=== PATIENT | male | born 1945 | race Caucasian/White ===

== ENCOUNTER 2017-03-03 11:41 | Day surgery (SDC) | payer OTHER ==
--- NOTE | 2017-03-02 14:47 | GHP ---
[f rep st] PREOP HISTORY AND PHYSICAL DATE OF ADMISSION: 03/03/2017 CHIEF COMPLAINT: Right groin pain. 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 He has been here for approximately 48 hours, and since that point in time, he has noted excr uciating right groin pain associated with a bulge. He states that he has recently been cleared afte r a rotator cuff surgery to get back to exercising and has been using more heavy weights as of sita dong. Prior to his trip out here, he began weight training more excessively and began to notice a [place] pain in the right groin, which has gotten worse over time. He describes the pain as sharp and b urning without radiation, 8/10 in intensity, and 1/10 after reduction. He states that he is able to self-reduce as he is familiar with the general anatomy of the area as he is a retired emergency dep artment physician. He denies having any fevers, chills, nausea, vomiting and states that the pain i s his main complaint. PAST MEDICAL HISTORY: Hypertension, hyperlipidemia. PAST SURGICAL HISTORY: Radical robotic prostatectomy performed in 2010 for prostate cancer. He has had orthopedic procedures to every major joint, except for his right knee. CURRENT MEDICATIONS: Include an MAITE inhibitor and hydrochlorothiazide combo, simvastatin, and a bab y aspirin. ALLERGIES: None. FAMILY HISTORY: Noncontributory. REVIEW OF SYSTEMS: A full 10-point review was performed and, unless explicitly stated above, is oth erwise negative. PHYSICAL EXAMINATION: VITAL SIGNS: Reassuring. GENERAL: He is alert and oriented, in no acute di stress. HEENT: His pupils are equal, round, and reactive to light and accommodation. His extraocu lar movements are intact. His mucous membranes are moist. NECK: Soft, supple, without lymphadenop athy. LUNGS: His lung sounds are clear to auscultation bilaterally. CV: He has a regular rate an d rhythm without any murmurs. ABDOMEN: Soft, nondistended, nontender. : He has normal male gen brandy. He has a small bulge in the right groin, which is tender to palpation. Left side without d efect. EXTREMITIES: Warm. NEUROLOGIC: He has a normal gait. His mentation is intact. IMAGING DATA: None. ASSESSMENT AND PLAN: A 71-year-old male with acute what appears to be direct right inguinal hernia. I discussed the patient's diagnosis with him in the clinic today. He would like expedient repair given the symptoms that it is causing him. I discussed with him the risks, benefits, and alternativ es to laparoscopic repair, and he wishes to proceed. I have subsequently scheduled him for March 03 for laparoscopic right inguinal hernia repair. We will also take a look at the left side. /[id number]/MODL
[2017-03-03] MEDS ORDERED: LIDOCAINE 1% 2 ML INJ ONE (12:08)
[2017-03-03] MEDS ORDERED: ceFAZolin 2 GM/DEXTROSE 100 ML IV ONE (12:11)
[2017-03-03] MEDS ORDERED: BUPIVACAINE/EPI 0.25% 30 ML SDV ONE (12:32)
[2017-03-03] MEDS ORDERED: SUCCINYLCHOLINE CHLORIDE 200 MG/10 ML VIAL ONE (13:17)
[2017-03-03] MEDS ORDERED: LIDOCAINE 2% 100 MG/5 ML SYR ONE (13:17)
[2017-03-03] MEDS ORDERED: fentaNYL 100 MCG/2 ML INJ ONE (13:17)
[2017-03-03] MEDS ORDERED: PROPOFOL 200 MG/20 ML VIAL ONE ×5 (13:17)
[2017-03-03] MEDS ORDERED: LIDOCAINE 1% 2 ML INJ ID PRN (13:20)
[2017-03-03] MEDS ORDERED: LR 1,000 ML IV ONE (13:20)
--- NOTE | 2017-03-03 13:48 | PDHPUP ---
History & Physical Update H&P update statement: This history and physical update is based on an assessment of the patient which was completed after admission or registration (within 24 hours), but prior to the surgery/procedure. H&P update: H&P reviewed & patient examined, no change in patient's condition since H&P completed
[2017-03-03] MEDS ORDERED: MIDAZOLAM 2 MG/2 ML VIAL ONE (13:51)
[2017-03-03] MEDS ORDERED: MIDAZOLAM 2 MG/2 ML VIAL IVP ONE (14:04)
[2017-03-03] MEDS ORDERED: LIDOCAINE 1% 300 MG/30 ML SDV ONE (14:07)
--- NOTE | 2017-03-03 14:10 | PDANEPAE ---
ANE History of Present Illness right inguinal hernia ANE Past Medical History - Cardiovascular History Hx Hypertension: Yes Hx Arrhythmias: No Hx Chest Pain: No Hx Coronary Artery / Peripheral Vascular Disease: No Hx CHF / Valvular Disease: No Hx Palpitations: No - Pulmonary History Hx COPD: No Hx Asthma/Reactive Airway Disease: No Hx Recent Upper Respiratory Infection: No Hx Oxygen in Use at Home: No Hx Sleep Apnea: No - Neurologic History Hx Cerebrovascular Accident: No Hx Seizures: No Hx Dementia: No - Endocrine History Hx Diabetes: No Hypothyroid: No Hyperthyroid: No Obesity: no ANE Review of Systems Review of systems is: negative - Exercise capacity Exercise capacity: >=4 METS ANE Patient History - Allergies Allergies/Adverse Reactions: No Known Allergies Allergy (Unverified 03/02/17 14:48) - Home Medications Home medications: home medication list seen and reviewed Home Medications: LISINOPRIL/HYDROCHLOROTHIAZIDE 10 mg PO 03/03/17 [Last Taken 03/03/17] SIMVASTATIN 20 mg PO 03/03/17 [Last Taken 03/03/17] - NPO status NPO Since - Liquids (Date): 03/02/17 NPO Since - Liquids (Time): 21:00 NPO Since - Solids (Date): 03/02/17 NPO Since - Solids (Time): 20:00 - Anes Hx Anes Hx: no prior problems - Smoking Hx Smoking Status: Never smoked Marijuana use: No ANE Labs/Vital Signs - Vital Signs Blood Pressure: 128/86 Heart Rate: 67 Respiratory Rate: 16 O2 Sat (%): 97 Height: 170.18 cm Weight: 70.307 kg ANE Physical Exam - Airway Neck exam: FROM Mallampati Score: Class 1 Mouth exam: normal dental/mouth exam - Pulmonary Pulmonary: no respiratory distress - Cardiovascular Cardiovascular: regular rate and rhythym - ASA Status ASA Status: II ANE Anesthesia Plan Anesthesia Plan: GA with mask
[2017-03-03] MEDS ORDERED: HYDROmorphONE/DILAUDID 1 MG/ML SYR IVP PRN (15:04)
[2017-03-03] MEDS ORDERED: fentaNYL 100 MCG/2 ML INJ IVP PRN (15:04)
[2017-03-03] MEDS ORDERED: ONDANSETRON 4 MG/2 ML VIAL IVP PRN (15:04)
[2017-03-03] MEDS ORDERED: ACETAMINOPHEN 500 MG TAB PO PRN (15:04)
[2017-03-03] MEDS ORDERED: NALOXONE HCL 0.4 MG/ML INJ IVP PRN (15:04)
[2017-03-03] MEDS ORDERED: OXYCODONE/APAP 5/325 TAB PO PRN (15:04)
--- NOTE | 2017-03-03 15:40 | POSTOPPROG ---
Post Op Note Date of Operation: 03/03/17 Surgeon: Mohamud Leyva Anesthesiologist: Sharona Anesthesia: IV Sedation Pre-op Diagnosis: Symptomatic right inguinal and umbilical hernia Post-op Diagnosis: same Procedure: open right inguinal hernia repair with mesh, umbilical hernia repair Findings: small indirect sac, small cm sized umbilical Inf/Abcess present in the surg proc area at time of surgery?: No EBL: Minimal
[2017-03-03] MEDS ORDERED: KETOROLAC 30 MG/1 ML SDV IVP ONE (15:41)
[2017-03-03] MEDS ORDERED: KETOROLAC 30 MG/1 ML SDV ONE (15:42)
--- NOTE | 2017-03-03 15:42 | POSTANESTH ---
Post Anesthetic Evaluation Cardiovascular Status: Normal, Stable Respiratory Status: Normal, Stable Level of Consciousness/Mental Status: Can Participate in Eval Pain Control: Adequate, Prn Tx Ordered Nausea/Vomiting Control: Adequate, Prn Tx Ordered Complications Possibly Related to Anesthesia: None Noted
[2017-03-03 15:52] VITALS: TEMP 96.6
[2017-03-03 16:56] VITALS: RESP 13; O2SAT 98
[2017-03-03 17:19] VITALS: BP 137/78; PULSE 58
--- NOTE | 2017-03-03 19:05 | GOP ---
[f rep st] OPERATIVE REPORT DATE OF OPERATION: 03/03/2017 SURGEON: Mohamud Leyva MD PREOPERATIVE DIAGNOSIS: 1. Symptomatic right inguinal hernia. 2. Symptomatic umbilical hernia. POSTOPERATIVE DIAGNOSIS: 1. Symptomatic right inguinal hernia. 2. Symptomatic umbilical hernia. PROCEDURE PERFORMED: 1. Open right inguinal hernia repair with mesh. 2. Open umbilical hernia repair primarily. FINDINGS: Indirect inguinal hernia sac identified within the cord structures, successfully reduced and repaired with site specific [employer] mesh. Small centimeter sized umbilical hernia repaired primarily with interrupted braided nylon suture. SPECIMENS: None. ESTIMATED BLOOD LOSS: 5 cc. DESCRIPTION OF PROCEDURE: The patient was greeted in the preoperative suite. Once again, risks, benefits, and alternatives were discussed. Consent was signed. He was then brought back to the operative suite, placed on the OR table in supine position. After all anesthesia machines, including SCDs, were on and functioning, [employer] time-out was performed. After successful induction of anesthesia, the patient's right groin and umbilicus were prepped and draped in typical sterile fashion. I turned my attention first toward the right inguinal region. After identifying the pubic tubercle and anterior superior iliac spine, I made a 3 cm incision adjacent to the pubic tubercle and carried it down through the subcutaneous tissue. I identified the external oblique aponeurosis and opened it in the direction of its fibers. Just deep to this, I encountered the cord structures which were successfully encircled with a Aminah drain. After encircling these, I cleaned the floor of the inguinal canal. There was a small bulge of the floor which was imbricated with a running 3-0 Vicryl stitch. After imbrication I opened up the cord and identified a small indirect inguinal hernia sac. I traced the sac all the way down, removed from the cord structures, and highly ligated it and allowed it to return to the patient's abdominal cavity, after ligating it with a 3-0 Vicryl stitch. Once this was done, I identified no other hernia sac or defect. I then brought my mesh into the site and trimmed it appropriately. I attached it to the pubic tubercle using an interrupted 0 Vicryl stitch. I then allowed it to lay within the inguinal canal along the inguinal ligament with significant overlap. I recreated the internal ring which had appropriate amount of space for the cord structures and sutured that in place, using an additional 0 Vicryl stitch. It laid over the conjoined tendon significantly medially. After this was done, and I ensured that the mesh was laid appropriately, I reapproximated the external oblique using a running 2-0 Vicryl suture. Throughout the case I used a combination of 1% lidocaine and 0.25% Marcaine with epinephrine to provide a field block. The subcutaneous tissue was reapproximated with a running 3-0 Vicryl. The skin with a running 4-0 Monocryl over which Dermabond was placed. I then turned my attention toward the patient's umbilicus. I made a curvilinear incision just inferior to the umbilicus. I dissected off the umbilical stalk from the underlying fascial tissue. Once this was successfully dissected I identified the hernia defect which was approximately 1 cm in greatest length. After cleaning both the over and under sides I grasped the edge with a Lesley clamp and using multiple interrupted 0 Surgilon sutures reapproximated the fascial defect, noting excellent reapproximation under minimal tension. Once this was done, I instilled 0.25% Marcaine into the fascia , reapproximated the umbilical stalk using interrupted 3-0 Vicryl stitch, reapproximated the underlying subcutaneous tissue with interrupted 3-0 Vicryl and the skin with running 4-0 Monocryl. Dermabond was placed over this. After this was finished the patient was then gently awakened and taken to the PACU in satisfactory condition. DRAINS: None. COUNTS: All counts were reported as correct x2. /[id number]/MODL MTDD
== END 2017-03-03 17:19 | disposition home or self-care (01) ==
LOC: FSGY 11:41
PROVIDERS: ATTEND Surgery
PROC: 0WQF0ZZ Repair Abdominal Wall, Open Approach (ICD-10-PCS; principal; 2017-03-03 13:45)
PROC: 0YU50JZ Supplement Right Inguinal Region with Synthetic Substitute, Open Approach (ICD-10-PCS; principal; 2017-03-03 13:45)
DX: K40.90 Unilateral inguinal hernia, without obstruction or gangrene, not specified as recurrent (principal); K42.9 Umbilical hernia without obstruction or gangrene; I10 Essential (primary) hypertension; E78.5 Hyperlipidemia, unspecified; Z85.46 Personal history of malignant neoplasm of prostate; Z87.39 Personal history of other diseases of the musculoskeletal system and connective tissue
CPT/HCPCS: C1781; J0330; J0690; J1885; J2001; J2250; J2704; J3010